=== PATIENT | female | born 1975 | race African-American/Black ===

== ENCOUNTER → 2017-04-19 | Outpatient (CLI) | payer BC ==
--- NOTE | ~2017-04-19 | CR236 ---
[facility] A Service [facility] RADIOLOGY TEXT RESULTS PATIENT: AXEL CAROLINA LOCATION: [facility] : 73 UNIT #: [id number] AGE: [address]: Sony Tavarez MD SEX: F ORDER DR: [id number] [facility] [address] [place], [place] [address] [id number] O MR#: [id number] Acc #: [id number] NAME: AXEL CAROLINA : 1975 SEX: F STUDY DATE/TIME: 04/19/2017 10:05 UNIT: [facility] ROOM: STUDY DESCRIPTION: CR Small Bowel Sbft W Films Attending Physician: Sony Tavarez M.D. Referring Physician: Sony Tavarez M.D. Ordering Physician: Sony Tavarez M.D. Primary Care Physician: Cary León A.P.R.N. MEDICAL IMAGING REPORT This report is preliminary unless electronic signature is present EXAM Small bowel follow-through. INDICATION Nausea, pain and diarrhea for 1 year. The fluoroscopy time was 0.2 minutes. Total of one fluoroscopic spot image was submitted and 6 abdominal radiographs were submitted. No comparisons are available. FINDINGS The back shoe cutter view demonstrates a large amount of stool within the cecum and ascending colon. Barium was administered and multiple spot radiographs were obtained. There is normal small bowel transit time. No dilated loops of bowel or abnormal fold thickening. No evidence for obstruction. Terminal ileum is normal. IMPRESSION Normal small bowel follow-through. Dictated by... Eliseo Branch M.D. THIS IS AN ELECTRONICALLY VERIFIED REPORT Eliseo Branch M.D. at 04/21/2017 5:01 PM ARS/bd TD: 04/20/2017 10:40 JOB #: [id number] [facility] A Service [facility] RADIOLOGY TEXT RESULTS PATIENT: AXEL CAROLINA LOCATION: [facility] : 73 UNIT #: [id number] AGE: [address]: Sony Tavarez MD SEX: F ORDER DR: MEDICAL IMAGING REPORT Page 1 of 1 COPY
== END | disposition home or self-care (01) ==
LOC: CRAD 07:17
DX: K26.7 Chronic duodenal ulcer without hemorrhage or perforation (principal); K29.70 Gastritis, unspecified, without bleeding; K44.9 Diaphragmatic hernia without obstruction or gangrene
CPT/HCPCS: 74250

== ENCOUNTER → 2017-04-23 | Outpatient (CLI) | payer BC ==
--- NOTE | ~2017-04-23 | NM19 ---
[facility] A Service of [facility] RADIOLOGY TEXT RESULTS PATIENT: AXEL CAROLINA LOCATION: [facility] : 73 UNIT #: [id number] AGE: [address]: Sony Tavarez MD SEX: F ORDER DR: [id number] [facility] [address] [place], [place] [address] [id number] O MR#: [id number] Acc #: [id number] NAME: AXEL CAROLINA : 1975 SEX: F STUDY DATE/TIME: 04/23/2017 10:18 UNIT: [facility] ROOM: STUDY DESCRIPTION: NM Gastric Emptying Study Attending Physician: Sony Tavarez M.D. Referring Physician: Sony Tavarez M.D. Ordering Physician: Sony Tavarez M.D. Primary Care Physician: Cary León A.P.R.N. MEDICAL IMAGING REPORT This report is preliminary unless electronic signature is present EXAM Gastric emptying study. INDICATIONS Abdominal pain radiating to the left abdomen and back, nausea, diarrhea and constipation. It has been going on for a year, getting worse in the last month and a half. TECHNIQUE The patient was given 514 mcCi technetium-99 sulfur colloid mixed with scrambled eggs. FINDINGS Activity remaining n the stomach was measured over time. At 60 minutes, the stomach is 26% empty. At 120 minutes, was 80% empty and at 240 minutes was 98% empty. IMPRESSION Normal gastric emptying study. Dictated by... Jayro Rossi M.D. THIS IS AN ELECTRONICALLY VERIFIED REPORT Jayro Rossi M.D. at 04/24/2017 8:37 AM CLARI/ritu TD: 04/23/2017 21:15 JOB #: [id number] MEDICAL IMAGING REPORT Page 1 of 1 COPY
== END | disposition home or self-care (01) ==
LOC: CNUC 09:17
DX: K26.7 Chronic duodenal ulcer without hemorrhage or perforation (principal); K29.70 Gastritis, unspecified, without bleeding; K44.9 Diaphragmatic hernia without obstruction or gangrene; R10.13 Epigastric pain; R11.0 Nausea
CPT/HCPCS: 78264; A9541